=== PATIENT | male | born 1970 | race Caucasian/White ===

== ENCOUNTER 2018-07-07 22:53 | Emergency (ER) | payer MEDICARE, BC ==
--- NOTE | 2018-07-07 23:24 | ED ---
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 He is here for a CTA. He he states he his chest pain center of his chest. He has history of thoracic aneurysm. He is seen by the [facility]. He admits occasional shortness breath. He had palpitations but they have resolved. ekg from [facility] shows sinus tachycardia. He was given lopressor and palpitations came down. He denies any nausea vomiting. No diaphoresis. Pain doesn't radiate anywhere anywhere. Feels like a pressure. Is nonsmoker. Troponin had [facility] was normal. He has minimal pain at this time. has has issues since back surgery with heart rate and blood pressure. he states this is not new. He states though he has never felt this week before. was given asa, lopressor and morphine prior to arrival here. - History of Current Complaint Chief Complaint: EDChestPainROMI Time Seen by Provider: 07/07/18 23:06 Pain Intensity: 4 - Allergy/Home Medications Allergies/Adverse Reactions: Allergies Allergy/AdvReac Type Severity Reaction Status Date / Time MS Morphine [Morphine] Allergy Mild Itching Verified 01/01/14 11:44 MS Penicillins [Penicillins] Allergy Unknown unkown Verified 01/01/14 11:44 MS Iodine [Iodine] Allergy Hives Verified 01/01/14 11:44 Home Medications: Home Medications Dextroamphetamine/Amphetamine [Dextroamp-Amphetamin 30 mg Tab] 30 mg PO BID 11/18 [History Confirmed 07/07/18] Dicyclomine CAP* [Bentyl CAP*] 20 mg PO BID 07/07/18 [History Confirmed 07/07/18 ] Metoprolol Succinate XL TAB* 25 mg PO DAILY 07/07/18 [History Confirmed 07/07/18 ] NIFEdipine CAP* [Procardia CAP*] 10 mg PO BID 07/07/18 [History Confirmed ] PMH/Surg Hx/FS Hx/Imm Hx Endocrine/Hematology History: Denies: Hx Diabetes Cardiovascular History: Reports: Hx Valvular Heart Disease - mitral valve prolapse Denies: Hx Congestive Heart Failure, Hx Hypertension, Hx Pacemaker/ICD Respiratory History: Reports: Hx Asthma History: Denies: Hx Renal Disease Musculoskeletal History: Reports: Hx Back Problems - 5 surgeries, [id number], Hx Orthopedic Injury, Other Musculoskeletal History - cervical and lumbar fusions Sensory History: Denies: Hx Hearing Aid Neurological History: Reports: Hx Headaches, Hx Migraine, Other Neuro Impairments/Disorders - 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 Denies: Hx Dementia, Hx Developmental Delay Comment Only: Hx Nerve Disease - nerve impulses in legs spasam at times, mild chronin tingling/numbness Psychiatric History: Reports: Hx Anxiety Denies: Hx Panic Disorder - Surgical History Surgery Procedure, Year, and Place: CERVICAL FUSION C4-5 2008, LUMBAR FUSION 1997,2004, [facility], RT SHOULDER 1991 - Immunization History Date of Tetanus Vaccine: unknown Date of Influenza Vaccine: no Infectious Disease History: No Infectious Disease History: Denies: Traveled Outside the [place] in Last 30 Days - Family History Known Family History: Positive: Cardiac Disease - Social History Alcohol Use: Occasionally Substance Use Type: Reports: None Smoking Status (MU): Never Smoked Tobacco Review of Systems Negative: Fever Positive: Chest Pain Positive: Shortness Of Breath. Negative: Cough Negative: Abdominal Pain All Other Systems Reviewed And Are Negative: Yes Physical Exam Triage Information Reviewed: Yes Vital Signs On Initial Exam: Initial Vitals Pulse Resp Pulse Ox 105 16 93 07/07/18 22:56 07/07/18 22:56 07/07/18 22:56 Vital Signs Reviewed: Yes Appearance: Positive: Well-Appearing Skin: Positive: Warm, Dry Head/Face: Positive: Normal Head/Face Inspection Eyes: Positive: Normal, EOMI, LEANN, Conjunctiva Clear ENT: Positive: Normal ENT inspection, Pharynx normal, TMs normal Respiratory/Lung Sounds: Positive: Clear to Auscultation, Breath Sounds Present Cardiovascular: Positive: Normal, RRR Abdomen Description: Positive: Nontender, Soft Bowel Sounds: Positive: Present Musculoskeletal: Positive: Normal Neurological: Positive: Normal Psychiatric: Positive: Normal Diagnostics - Vital Signs Vital Signs Temp Pulse Resp BP Pulse Ox 07/07/18 23:00 102 16 97 07/07/18 22:57 99.4 F 106 23 138/99 98 07/07/18 22:56 105 16 93 - Laboratory Lab Statement: Any lab studies that have been ordered have been reviewed, and results considered in the medical decision making process. - EKG No standard instances Cardiac Rate: Tachycardia EKG Rhythm: Sinus Tachycardia Summary of EKG Findings: sinsu tachycardia Re-Evaluation - Re-Evaluation First Eval Re-Evaluation Time: 00:07 Comment: tongue is itchy. nausea resolved after CT Second Eval Re-Evaluation Time: 00:56 Change: Improved Comment: feeling better, chest pain decreased Third Eval Re-Evaluation Time: 01:07 Comment: chest pain free, feels comfortable going home Chest Pain Course/Dx - Course Course Of Treatment: 47-year-old male with a history of bicuspid male presents from [facility] for chest pain. He is here for a CTA. He he states he his chest pain center of his chest. He has history of thoracic aneurysm. He is seen by the [facility]. He admits occasional shortness breath. He had palpitations but they have resolved. ekg from [facility] shows sinus tachycardia. He was given lopressor and palpitations came down. He denies any nausea vomiting. No diaphoresis. Pain doesn't radiate anywhere anywhere. Feels like a pressure. Is nonsmoker. Troponin had [facility] was normal. He has minimal pain at this time. has has issues since back surgery with heart rate and blood pressure. he states this is not new. He states though he has never felt this week before. was given asa, lopressor and morphine prior to arrival here. on exam in sinus rhythm. lungs CTA. abd soft nontender. CTA shows no dissection or PE. troponin 2nd normal. potassium was 3.2 at [facility] so gave potassium. discussed case with dr jimenez who says can send home to follow up for stress test. palipations have resolved and patient is chest pain free. told follow up with primary or cardiology to have stress test arranged. patient understand and agrees with plan. - Chest Pain Differential Diagnosis/HQI/PQRI: ACS, Pulmonary Embolism, Other: - dissection - Diagnoses Provider Diagnoses: Chest pain, Palpitations Discharge - Sign-Out/Discharge Documenting (check all that apply): Patient Departure Patient Received Moderate/Deep Sedation with Procedure: No - Discharge Plan Condition: Stable Disposition: HOME Patient Education Materials: Chest Pain (ED) Referrals: Bobby Castellon DO [Medical Doctor] - Jared Araiza MD [Primary Care Provider] - Additional Instructions: follow up with cardiology or primary for stress test Return to ED if develop any new or worsening symptoms - Billing Disposition and Condition Condition: STABLE Disposition: Home
[2018-07-08] MEDS ORDERED: Iohexol 350* (CONTRAST) 500 ML MDV IV ONE
[2018-07-08] MEDS ORDERED: methylPREDNISolone 125 MG* 2 ML VIAL IV ONE (00:02)
[2018-07-08] MEDS ORDERED: diPHENhydraMINE PO* 50 MG PO ONE (00:02)
[2018-07-08] MEDS ORDERED: Ondansetron INJ* 2 MG/ML VIAL IV ONE (00:05)
[2018-07-08 00:58] VITALS: BP 130/94
[2018-07-08] MEDS ORDERED: Potassium Chlor TAB* 20 MEQ TAB.ER PO ONE (01:08)
== END 2018-07-08 01:30 | disposition home or self-care (01) ==
LOC: ED 22:53
DX: R07.89 Other chest pain (principal); R00.2 Palpitations; R06.02 Shortness of breath; I34.1 Nonrheumatic mitral (valve) prolapse; F41.9 Anxiety disorder, unspecified; Z88.3 Allergy status to other anti-infective agents; Z88.5 Allergy status to narcotic agent; Z88.0 Allergy status to penicillin; Z82.49 Family history of ischemic heart disease and other diseases of the circulatory system
CPT/HCPCS: 36415; 71275; 74174; 84484; 93005; 96374; 99283; A9270-GY; J2930; Q9967